=== PATIENT | male | born 1970 | race Caucasian/White ===

== ENCOUNTER 2017-03-16 23:07 | Emergency (ER) | payer SELFPAY ==
--- NOTE | 2017-03-16 23:15 | EDPHY ---
H & P Time Seen by Provider: 03/16/17 23:12 HPI/ROS: CHIEF COMPLAINT: "I'm a dumbass and I'm drunk" HISTORY OF PRESENT ILLNESS: 46-year-old male arrives by ambulance after he was found sleeping on the street admits to alcohol use. No trauma or fall. No structures of height nearby. No suicidal or homicidal ideation. No complaints of pain or discomfort. No fever no chills. No recent illness. PRIMARY CARE PROVIDER: REVIEW OF SYSTEMS: A ten point review of systems was performed and is negative with the exception of the items mentioned in the HPI PAST MEDICAL/SURGICAL HISTORY: no anticoagulant use, self-described alcoholic SOCIAL HISTORY: Positive alcohol use PHYSICAL EXAM 1) GENERAL: Well-developed, well-nourished, alert and oriented. Smells of alcohol . Answering questions appropriately. 2) HEAD: Normocephalic, atraumatic 3) HEENT: Pupils equal, round, reactive to light bilaterally. Negative Horners. Nasopharynx, oropharynx, clear. No deformity or angulation of nose. No septal hematoma. No rhinorrhea. No oral trauma. Ears bilaterally with normal tympanic membranes. No hemotympanum. No fluid or blood in the external auditory canal. No raccoon eyes. No Austin sign. . 4) NECK: No cervical collar is on. Posterior cervical spine is nontender, no stepoff, no effusion. Full range of motion which does not elicit any midline cervical spine pain, no posterior midline tenderness, no step-off. 5) LUNGS: Clear to auscultation bilaterally, no wheezes, no rhonchi, no retractions. No obvious signs of trauma. No chest wall pain. No flaring, no grunting. Moving symmetrically. No crepitus. 6) HEART: Regular rate and rhythm, 7) ABDOMEN: No guarding, no rebound, no focal tenderness, no peritoneal signs, no signs of trauma, no ecchymosis 8) MUSCULOSKELETAL: Moving all extremities, no focal areas of tenderness, no obvious trauma. 9) BACK: No midline vertebral tenderness, no fluctuance, no step-off, no obvious trauma, no visual or palpable abnormality. 10) SKIN: No laceration. No abrasion DIFFERENTIAL DIAGNOSIS: In no particular order including but not limited to acute alcohol intoxication, trauma, polysubstance abuse Smoking Status: Never smoked Constitutional: Initial Vital Signs Temperature (C) 37.0 C 03/16/17 23:07 Heart Rate 92 03/16/17 23:07 Respiratory Rate 18 03/16/17 23:07 Blood Pressure 120/88 H 03/16/17 23:07 O2 Sat (%) 94 03/16/17 23:07 O2 Delivery Mode Room Air Allergies/Adverse Reactions: Penicillins Allergy (Verified 01/25/10 21:26) Home Medications: Medication Instructions Recorded Levothyroxine 01/25/10 oxyCODONE/APAP 5/325 [Percocet 1 tab PO Q6 #15 tab 01/25/10 5/325] MDM/Departure - MDM Medications Given: Discontinued Medications Chlordiazepoxide (Librium 25 Mg Prepack#6) 1 btl TAKEHOME EDNOW ONE Stop: 03/16/17 23:28 Last Admin: 03/16/17 23:41 Dose: 1 btl ED Course/Re-evaluation: Patient denies suicidal or homicidal ideation. At 11:29 p.m. he is awake alert oriented person place time events stable steady gait clear speech pattern, plan will be [facility] - Depart Disposition: Home, Routine, Self-Care Clinical Impression: Alcoholic intoxication Condition: Good Instructions: Chlordiazepoxide (By mouth), Alcohol Intoxication (ED) Referrals: [facility] Hours [Outside] - 1 day without fail
[2017-03-16 23:17] VITALS: BP 120/88; PULSE 92; RESP 18; TEMP 98.6; O2SAT 94
[2017-03-16] MEDS ORDERED: CHLORDIAZEPOXIDE 25MG PREPK#6 BTL TAKEHOME ONE (23:27)
== END 2017-03-16 23:59 | disposition home or self-care (01) ==
LOC: EDUNIT#
DX: F10.129 Alcohol abuse with intoxication, unspecified (principal)

== ENCOUNTER 2017-06-15 21:54 | Emergency (ER) | payer MEDICAID ==
[2017-06-15 22:01] VITALS: RESP 16
--- NOTE | 2017-06-15 22:13 | EDPHY ---
H & P Stated Complaint: [facility] hold Time Seen by Provider: 06/15/17 22:05 HPI/ROS: CHIEF COMPLAINT: Alcohol intoxication HISTORY OF PRESENT ILLNESS: The patient is brought in by ambulance for alcohol intoxication. He was found outside, passed out, disoriented and unable to stand according to the paramedics. Patient was found by bystanders to be severely intoxicated and therefore they called EMS system. Patient denies any injuries, denies loss of consciousness, denies any recent trauma. Patient denies coingestion, patient denies suicidal or homicidal behavior. REVIEW OF SYSTEMS: Constitutional: No fever, no chills. Eyes:No visual changes. ENT: No sore throat. Respiratory: No cough, no shortness of breath. Cardiac: No chest pain. Gastrointestinal: No abdominal pain, vomiting or diarrhea. Genitourinary: No hematuria. Musculoskeletal: No back pain. Skin: No rashes. Neurological: No headache. PAST MEDICAL HISTORY: Multiple prior visits for alcohol intoxication PAST SURGICAL HISTORY: None SOCIAL HISTORY: Chronic alcohol abuse PHYSICAL EXAM: General Appearance: Alert, well hydrated, appropriate, and non-toxic appearing. Head: Atraumatic without scalp tenderness or obvious injury Eyes: Pupils equal, round, reactive to light, no injection. Ears: Clear bilaterally, no perforation, normal landmarks Nose: Atraumatic, no rhinorrhea, clear. Throat: mucus membranes moist. Neck: Supple, non-tender, no lymphadenopathy. Respiratory: No retractions, no distress, no wheezes, and no accessory muscle use. Lungs are clear to auscultation bilaterally. Cardiovascular: Regular rate and rhythm, no murmurs, rubs, or gallops. Gastrointestinal: Abdomen is soft, non-tender, non-distended Musculoskeletal: Normal active ROM of all extremities, atraumatic. Neurological: Alert, appropriate, and interactive. Moves all extremities equally. Skin: No rashes, good turgor, no nodules on palpation. MEDICAL DECISION MAKING: I serially examined this patient since the patient's arrival here in the emergency department. The patient continues to become more and more sober with each examination. I serially questioned the patient and the patient's story given initially has not changed. The patient still denies any trauma, any head injury, and any illicit drug use. At this point, the patient is walking the department freely and is clinically sober. We're discharging the patient to the [facility] in stable condition. Source: Patient, EMS, Old records Exam Limitations: Intoxication - Personal History Current Tetanus Diphtheria and Acellular Pertussis (TDAP): Unsure - Medical/Surgical History Hx Asthma: No Hx Chronic Respiratory Disease: No Hx Diabetes: No Hx Cardiac Disease: No Hx Renal Disease: No Hx Cirrhosis: No Hx Alcoholism: Yes Hx HIV/AIDS: No Hx Splenectomy or Spleen Trauma: No Other PMH: STAPH INFECTION TO JAW, ETOH - Social History Smoking Status: Never smoked Constitutional: Initial Vital Signs Temperature (C) 35.9 C L 06/15/17 21:58 Heart Rate 84 06/15/17 21:58 Respiratory Rate 16 06/15/17 21:58 Blood Pressure 112/81 H 06/15/17 21:58 O2 Sat (%) 96 06/15/17 21:58 O2 Delivery Mode Room Air Allergies/Adverse Reactions: Penicillins Allergy (Verified 06/15/17 21:58) Home Medications: Medication Instructions Recorded Levothyroxine 01/25/10 oxyCODONE/APAP 5/325 [Percocet 1 tab PO Q6 #15 tab 01/25/10 5/325] Departure - Departure Disposition: Home, Routine, Self-Care Clinical Impression: Alcoholic intoxication Qualifiers: Complication of substance-induced condition: with delirium Qualified Code(s): F10.921 - Alcohol use, unspecified with intoxication delirium Condition: Good Instructions: Alcohol Intoxication (ED), Abuse of Alcohol (ED) Referrals: [facility] 24 Hours [Outside] - As per Instructions
[2017-06-16 04:37] VITALS: TEMP 97.5
[2017-06-16 04:50] VITALS: BP 126/89; PULSE 93; O2SAT 91
[2017-06-16] MEDS ORDERED: CHLORDIAZEPOXIDE 25MG PREPK#6 BTL TAKEHOME ONE ×2 (04:57→05:00)
== END 2017-06-16 04:55 | disposition home or self-care (01) ==
LOC: EDUNIT#
DX: F10.921 Alcohol use, unspecified with intoxication delirium (principal)